=== PATIENT | female | born 1960 | race Two or more races ===

== ENCOUNTER 2017-07-26 09:46 | Emergency (ER) | payer SELFPAY ==
[~2017-07-26] VITALS: Ht 167.6 cm; Wt 68.0 kg
[2017-07-26 10:45] VITALS: BP 117/69
[2017-07-26] MEDS ORDERED: ASPirin 81 mg TAB PO ONE (10:45)
[2017-07-26 11:19] LABS: Basophils # (auto) 0 uL; Basophils % (auto) 0.3 % (0.0-2.0); CONDITION Y; Eosinophils # (auto) 0.1 uL; Eosinophils % (auto) 1.1 % (0.0-7.0); Hematocrit 40.5 % (36.0-46.0); Hemoglobin 13.7 g/dL (12.2-16.2); Lymphocytes # (auto) 2.2 uL; Lymphocytes % (auto) 42.7 % (10.0-50.0); Mean Corpuscular Hemoglobin 31.4 pg (28.0-32.0); Mean Corpuscular Hgb Conc. 33.9 g/dL (32.0-36.0); Mean Corpuscular Volume 92.8 fL (80.0-100.0); Monocytes # (auto) 0.3 uL; Monocytes % (auto) 5.1 % (0.0-12.0); Neutrophils # (auto) 2.7 uL; Neutrophils % (auto) 50.8 % (37.0-80.0); Platelet Count (auto) 223 10^3/uL (140-450); Red Cell Distribution Width 13.2 % (11.6-16.0); White Blood Cell 5.2 10^3/uL (4.4-10.8)
[2017-07-26 12:37] LABS: Potassium 4.2 mmol/L (3.5-5.1)
[2017-07-26 12:43] LABS: Albumin 3.9 g/dL (3.4-5.0); BUN/Creatinine Ratio 27.7; Calcium 8.7 mg/dL (8.5-10.1); Magnesium 2.7 mg/dL (1.6-2.6)
[2017-07-26 12:48] LABS: Bilirubin, Total 0.3 mg/dL (0.2-1.0); Total Protein 7.4 g/dL (6.4-8.2)
== END 2017-07-26 15:32 | disposition home or self-care (01) ==
LOC: ER 09:46
DX: R07.89 Other chest pain (principal); Z98.51 Tubal ligation status
CPT/HCPCS: 36415; 71010; 80053; 83735; 84484; 85025; 85379; 93005; 94761

== ENCOUNTER → 2022-08-29 | Emergency (ER) | payer MEDICAID, OTHER ==
[~2022-08-29] VITALS: Ht 167.6 cm; Wt 69.1 kg
[~2022-08-29] MED LIST: IBUP800T27 PO
[2022-08-29 16:19] VITALS: BP 124/66
[2022-08-29 17:44] LABS: Albumin 3.8 g/dL (3.4-5.0); Calcium 8.9 mg/dL (8.5-10.1); Potassium 3.9 mmol/L (3.5-5.1)
[2022-08-29 17:49] LABS: BUN/Creatinine Ratio 24.4; Bilirubin, Total 0.4 mg/dL (0.2-1.0)
[2022-08-29 18:02] LABS: Basophils # (auto) 0 10 ^3/uL (0-0.2); Basophils % (auto) 0.7 % (0.0-2.0); Eosinophils # (auto) 0.1 10 ^3/uL (0-0.8); Eosinophils % (auto) 1.7 % (0.0-7.0); Hematocrit 39.9 % (36.0-46.0); Hemoglobin 13.2 g/dL (12.2-16.2); Lymphocytes # (auto) 2.2 10 ^3/uL (0.4-5.4); Lymphocytes % (auto) 43.2 % (10.0-50.0); Mean Corpuscular Hemoglobin 30.6 pg (28.0-32.0); Mean Corpuscular Hgb Conc. 33.1 g/dL (32.0-36.0); Mean Corpuscular Volume 92.3 fL (80.0-100.0); Monocytes # (auto) 0.3 10 ^3/uL (0-1.3); Monocytes % (auto) 5.9 % (0.0-12.0); Neutrophils # (auto) 2.5 10 ^3/uL (1.6-8.6); Neutrophils % (auto) 48.5 % (37.0-80.0); Nucleated Red Blood Cells % 0.1 %; Red Blood Cells 4.33 10^6/uL (4.0-5.20); White Blood Cell 5.1 10^3/uL (4.4-10.8)
== END | disposition left against medical advice (07) ==
LOC: ER 15:47
DX: R51.9 Headache, unspecified (principal); R07.89 Other chest pain; Z98.51 Tubal ligation status
CPT/HCPCS: 36415; 70486; 80053; 84484; 85025; 93005